=== PATIENT | female | born 1955 | race Caucasian/White ===

== ENCOUNTER 2020-08-20 06:53 | Outpatient (NON) | payer OTHER, SELFPAY ==
[2020-08-21 13:43] LABS: SARS-CoV-2 RNA PCR Positive
== END 2020-08-20 06:54 ==
PROVIDERS: PCP Family Medicine Adolescent Medicine; Visit Provider Family Medicine Adolescent Medicine
DX: U07.1 COVID-19 (principal)
CPT/HCPCS: 87635; C9803; U0003

== ENCOUNTER 2023-10-04 15:01 | Outpatient (CLI) | payer MEDICARE, OTHER, SELFPAY ==
--- NOTE | ~2023-10-04 | XR_ITS ---
EXAMINATION: XR chest 2V DATE: 10/04/2023 15:16 INDICATION: Pericarditis presenting with dyspnea and one week of chest pain TECHNIQUE: PA and lateral views of the chest were obtained. COMPARISON: Chest radiograph dated 07/30/2019 FINDINGS: The lungs remain clear with no focal airspace opacities, pulmonary edema, pleural effusion or pneumot horax. The cardiomediastinal silhouette is normal. Mild to moderate thoracic spondylosis. Plain screw fixation along the proximal right humerus. IMPRESSION: 1. No radiographic acute cardiopulmonary disease. Reviewed, dictated and finalized at location A. RICT REPRESENTATIVE
== END 2023-10-04 15:02 | disposition home or self-care (01) ==
PROVIDERS: PCP Family Medicine Adolescent Medicine; Visit Provider Family Medicine Adolescent Medicine
DX: I31.9 Disease of pericardium, unspecified (principal)
CPT/HCPCS: 71046

== ENCOUNTER 2024-06-05 20:20 | Observation (INO) | payer MEDICARE, OTHER, SELFPAY ==
--- NOTE | ~2024-06-05 | CT_ITS ---
Clinical Indication: Pulmonary embolus, chest pain CT Scan of the Chest with Contrast: Technique: Contiguous sections were acquired throughout the chest after intravenous administration of 100 cc of Omnipaque 350. Dose reduction technique was used on this scan by utilizing automated expos ure control and iterative reconstruction technique. The dose-length product (DLP) was 372.09 mGy-cm. Findings: There is no evidence of any significant mediastinal, hilar or axillary lymphadenopathy. There is no f illing defect in the pulmonary arterial tree to suggest pulmonary embolus. There is no evidence of ao rtic dissection or aneurysm. There is no evidence of pleural or pericardial effusion. The lungs are clear. No pulmonary nodules or infiltrates are noted. Images through the upper abdomen reveal no abnormalities. Impression: No evidence of pulmonary embolus, aortic dissection, or aortic aneurysm. Clear lungs. Reviewed, dictated and finalized at [facility]. Impression: No evidence of pulmonary embolus, aortic dissection, or aortic aneurysm. Clear lungs.
--- NOTE | ~2024-06-05 | XR_ITS ---
XR chest 2V Ordering provider: Yuriy Gregorio MD History: 68 years Female with . chest pain . Comparison: October 04, 2023 FINDINGS: MEDIASTINUM: The cardiac silhouette is not enlarged. LUNGS: No infiltrates, effusions or pneumothorax. OTHER: No free air under the diaphragm. Degenerative changes of the spine. Postoperative changes in t he right humerus. IMPRESSION: No acute cardiopulmonary pathology. Reviewed, dictated and finalized at location A.
--- NOTE | 2024-06-05 20:23 | ECG_ITS ---
Test Date: 2024-06-05 20:29:47 Measurements Intervals [place] Rate: 80 P: 54 AL: 138 QRS: 21 QRSD: 94 T: 18 QT: 403 QTc: 466 Interpretive Statements SINUS RHYTHM BORDERLINE ST-T WAVE ABNORMALITY- ANTEROLAT/INF LEADS BASELINE ARTIFACT- I, II, III, AVR, AVL, AVF, V1-V6 BORDERLINE ECG No previous ECG available for comparison Electronically Signed On 06-06-2024 06:39:27 CDT by Andrea Marks D.O.
[2024-06-05 20:51] LABS: Basophils Absolute Auto 0.1 K/mm3 (0.0-0.1); Basophils Percent Auto 0.9 % (0.2-1.2); Eosinophils Absolute Auto 0.4 K/mm3 (0-0.3); Eosinophils Percent Auto 5.4 % (0-4.4); Hematocrit 42.6 % (37.0-47.0); Hemoglobin 14.1 g/dL (12.0-15.0); Immature Granulocyte Absolute 0.03 K/mm3 (0.00-0.031); Immature Granulocyte Percent A 0.4 % (0-0.5); Lymphocytes Absolute Auto 2.85 K/mm3 (0.9-3.2); Lymphocytes Percent Auto 36.3 % (18.3-44.2); Mean Corpuscular HGB Conc 33.1 g/dl (32-36); Mean Corpuscular Hemoglobin 30.5 pg (26-34); Mean Corpuscular Volume 92.2 fl (80-100); Mean Platelet Volume 9.6 fl (7.4-10.4); Monocytes Absolute Auto 0.7 K/mm3 (0.1-0.6); Monocytes Percent Auto 9.3 % (2.6-8.5); Neutrophils Absolute Auto 3.8 K/mm3 (1.3-6.7); Neutrophils Percent Auto 47.7 % (45.5-73.1); Platelet Count Result 299 k/mm3 (150-375); Red Blood Count 4.62 M/mm3 (4.2-5.4); Red Cell Distribution Width 12.3 % (11.5-14.5); White Blood Count 7.9 K/mm3 (4.5-10.0)
[2024-06-05 20:54] VITALS: BP 145/61; PULSE 76; RESP 22; TEMP 36.8; O2SAT 99
[2024-06-05 21:02] LABS: Partial Thromboplastin Time 25.6 Seconds (22.3-36.8); Prothrombin Time 13.3 Seconds (11.1-14.7)
[2024-06-05 21:03] LABS: Alanine Aminotransferase 21 U/L (6-35); Albumin Level 4.6 g/dL (3.5-5.1); Alkaline Phosphatase 60 U/L (38-126); Anion Gap 14 mmol/L (4-12); Aspartate Amino Transferase 26 U/L (14-36); Bilirubin,Total 1.3 mg/dL (0.2-1.3); Blood Urea Nitrogen 18 mg/dL (7-17); Calcium 9.1 mg/dL (8.4-10.2); Carbon Dioxide 21 mmol/L (22-30); Chloride 105 mmol/L (98-107); Estimated CRCL calculation 54 ml/min; Estimated Glomerular Filt Rate > 60; Glucose 133 mg/dL (65-110); Lipase 120 U/L (23-300); Potassium 3.9 mmol/L (3.4-5.0); Sodium 140 mmol/L (137-145)
[2024-06-05 21:13] LABS: Troponin I < 0.012 ng/mL (0.000-0.034)
[2024-06-05 21:46] LABS: Influenza A QL RT-PCR Negative (Negative); Influenza B QL RT-PCR Negative (Negative); RSV RNA, RT-PCR Negative (Negative); SARS-CoV-2 RNA PCR Negative (Negative)
[2024-06-06] VITALS (49 sets, daily range): BP systolic 118–149; BP diastolic 58–97; PULSE 62–94; RESP 11–24; TEMP 36.3–36.8; O2SAT 93–100; BMI 26.1; BMI 27.5
--- NOTE | 2024-06-06 04:49 | ECG_ITS ---
Test Date: 2024-06-06 04:55:02 Measurements Intervals [place] Rate: 72 P: 60 MI: 140 QRS: 39 QRSD: 89 T: 40 QT: 419 QTc: 461 Interpretive Statements SINUS RHYTHM NONSPECIFIC ST-T WAVE ABNORMALITY- ANTEROLAT/INF LEADS BASELINE ARTIFACT- I, II, III, AVR, AVL, AVF BORDERLINE ECG Compared to ECG 06/05/2024 20:29:47 NO SIGNIFICANT CHANGE Electronically Signed On 06-06-2024 06:51:00 CDT by Andrea Marks D.O.
[2024-06-06] MEDS: MORPHINE SULFATE (*CRX) 4 MG/ML INJ IV PUSH (05:09)
[2024-06-06] MEDS: ASPIRIN 81 MG CHEWABLE TABLET 324 MG PO (05:09)
[2024-06-06] MEDS: NITROGLYCERIN SL 0.4 MG TABLET SUBLINGUAL (05:10)
--- NOTE | 2024-06-06 05:33 | ED.GENADULT ---
HPI - General Adult General Chief complaint: Chest Pain Stated complaint: cp Time Seen by Provider: 06/06/24 04:40 History of Present Illness HPI narrative: patient is a 68-year-old female who presents emergency department with chief complaint of chest pain and shortness of breath. Patient reports that she does have remote history of asthma but has not had an attack for years the patient states she feels as though she can not get her air in her chest the patient reports she was diagnosed with pericarditis previously and this feels worse than that episode. Patient reports that she has had a little bit of swelling in her legs patient reports that she has no prior cardiac disease Related Data Home Medications Medication Instructions Recorded Confirmed albuterol sulfate 90 mcg/actuation 2 puff inhalation Q4H PRN 12/05/21 05/10/23 aerosol inhaler (ProAir HFA) Allergies Allergy/AdvReac Type Severity Reaction Status Date / Time cephalexin Allergy Mild unknown Verified 10/04/23 13:41 Penicillins Allergy Mild unknown Verified 10/04/23 13:41 sulfamethoxazole Allergy Mild unknown Verified 10/04/23 13:41 [From Septra] trimethoprim [From Septra] Allergy Mild unknown Verified 10/04/23 13:41 cefaclor [From Ceclor] AdvReac Intermediate swollan Verified 10/04/23 13:41 tongue baclofen AdvReac Mild Rash Verified 10/04/23 13:41 Review of Systems Review of Systems: A 10 system review of systems was completed on the patient and is negative except for what is stated in the HPI. Nursing and ancillary documentation was reviewed. PMFSH Past Medical History Medical History Pure hypercholesterolemia, unspecified Surgical History Surgical History H/O shoulder surgery H/O: hysterectomy History of cholecystectomy Family History Family History Father Heart disease Mother Hypertension Social History Social History Smoking status: Never smoker Second hand tobacco smoke exposure: No Alcohol intake: never Substance use: never Substance use type: does not use Lack of Transportation: No Lack of Food: Never True Current Housing: I Have Housing Concerned About Future Housing: No Difficulty Paying Gas/Electric Bills: No Difficulty Paying for Meds: No Currently Unemployed: No Education: High School Diploma/GED Difficulty w/ Childcare or Family Care: No Living arrangements: with family Occupation/Education: retired Gender identity (if verbalized by the patient): Female Sexual Orientation (if Verbalized by the Patient): Straight or Heterosexual Spiritual care concerns: No Agree to blood products: Yes Exam Narrative: GENERAL: Well-appearing, well-nourished, and in no acute distress. HEAD: Normocephalic, atraumatic. EYES: PERRLA and EOMI. ENT: Nares clear, no rhinorrhea or epistaxis. Mucous membranes moist. NECK: Supple. CHEST: Clear to auscultation. No respiratory distress. chest wall is tender to palpation in the left sternal border HEART: Regular rate and rhythm. No murmur heard. Normal peripheral pulses. ABDOMEN: Soft, nontender, nondistended, normal active bowel sounds. EXTREMITIES: Normal range of motion. No edema. SKIN: Warm, dry, no rash. NEURO: No focal deficits. Alert and oriented x3. PSYCH: Normal mood and affect. Course Vital Signs Vital signs: Vital Signs Temperature 36.8 C 06/05/24 20:54 Pulse Rate 76 06/05/24 20:54 Respiratory Rate 22 H 06/05/24 20:54 Blood Pressure 145/61 H 06/05/24 20:54 Pulse Oximetry 99 06/05/24 20:54 Oxygen Delivery Room Air 06/05/24 20:54 Temperature 36.8 C 06/05/24 20:54 Pulse Rate 66 06/06/24 06:03 Respiratory Rate 22 H 06/05/24 20:54 Blood Pressu
[2024-06-06 05:35] LABS: NT Pro B Type Natriuretic Pept 99 pg/mL (19.9-100)
[2024-06-06 05:41] LABS: Troponin I 0.015 ng/mL (0.000-0.034)
--- NOTE | 2024-06-06 13:11 | PM.IMHP ---
H&P: HPI History of Present Illness Date/Time: 06/06/24 13:11 Chief Complaint: chest pain Narrative: 68 y.o female with pmh of htn reports chest pain that lasted all night. She had covid in 2019 and was never the same after . She was seen per her Pcp in november with c/o chest pain- intermitten- and diagnosed with pericarditis based on physical exam- Not pleuritic and not affected by motion, though is worse if she lies on her left side n echo was done as far as she remembers. She was prescribed diclofenac 75 mg bid x 30 days but quit taking it after few doses as she didnot like how it made her feel. She did not let her pcp know. She reports she continued to have chest pain on and off until yesterday it lasted all night that prompted her to come to ED. She describes her pain as constant, dull and she felt like she could not catch her breath- but it didn't feel like asthma attack at all. She denies smoking, drinking alcohol or any drug use. h/o: asthma but has albuterol prn and she has not been needing it lately at all. EKG - no acute issues WBC-normal, afebrile. trop negative Review of Systems Review of Systems: All systems reviewed & are unremarkable except as noted in HPI and below (h/p) PMFSH Past Medical History Medical History Pure hypercholesterolemia, unspecified Surgical History Surgical History H/O shoulder surgery H/O: hysterectomy History of cholecystectomy Family History Family History Father Heart disease Mother Hypertension Social History Social History Smoking status: Never smoker Second hand tobacco smoke exposure: No Alcohol intake: never Substance use: never Substance use type: does not use Lack of Transportation: No Lack of Food: Never True Current Housing: I Have Housing Concerned About Future Housing: No Difficulty Paying Gas/Electric Bills: No Difficulty Paying for Meds: No Currently Unemployed: No Education: High School Diploma/GED Difficulty w/ Childcare or Family Care: No Living arrangements: with family Occupation/Education: retired Gender identity (if verbalized by the patient): Female Sexual Orientation (if Verbalized by the Patient): Straight or Heterosexual Spiritual care concerns: No Agree to blood products: Yes Meds Home Medications and Allergies Home Medications Medication Instructions Recorded Confirmed Type carvedilol 12.5 mg tablet See Rx Instructions .Route 02/12/24 Rx .COMPLEX #60 tabs furosemide 20 mg tablet 20 mg PO QAM PRN edema #30 tabs 03/19/24 Rx Allergies Allergy/AdvReac Type Severity Reaction Status Date / Time cephalexin Allergy Mild unknown Verified 10/04/23 13:41 Penicillins Allergy Mild unknown Verified 10/04/23 13:41 sulfamethoxazole Allergy Mild unknown Verified 10/04/23 13:41 [From Septra] trimethoprim [From Septra] Allergy Mild unknown Verified 10/04/23 13:41 cefaclor [From [facility]] AdvReac Intermediate swollan Verified 10/04/23 13:41 tongue baclofen AdvReac Mild Rash Verified 10/04/23 13:41 Vital Signs Vital Signs - 24 hr 06/05/24 20:54 06/06/24 06:03 06/06/24 07:29 Temperature 98.2 F Pulse Rate 76 66 67 Respiratory Rate 22 H 16 Blood Pressure 145/61 H 126/68 Pulse Oximetry 99 99 Oxygen Delivery Room Air 06/06/24 05:12 06/06/24 05:13 06/06/24 05:15 Temperature Pulse Rate 74 94 75 Respiratory Rate 12 13 12 Blood Pressure 145/68 H Pulse Oximetry 98 99 95 Oxygen Delivery 06/06/24 05:16 06/06/24 05:30 06/06/24 05:31 Temperature Pulse Rate 94 88 93 Respiratory Rate 17 18 15 Blood Pressure 138/74 125/71 Pulse Oximetry 98 93 95 Oxygen Delivery 06/06/24 06:40 06/06/24 06:45 06/06/24 06:46 [place]
--- NOTE | 2024-06-06 18:36 | ADMGEN ---
This patient, Kiki Fritz, was admitted to IMU Room 203-01. Patient/family oriented to hospital policies and general routines including ID bracelet, bed and alarms, visiting hours, pain management, procedures, bathroom and other care routines, personal items, smoking policy, room service/diet, and visiting hours. Information on how to activate the Rapid Response Team has been discussed. Patient/Family are encouraged to report perceived risks to care and to ask questions if they do not understand what they are told or what they should do.
[2024-06-06] MEDS: ACETAMINOPHEN 325 MG TABLET 650 MG PO (20:38)
[2024-06-07] VITALS (9 sets, daily range): BP systolic 132–151; BP diastolic 59–68; PULSE 64–99; RESP 16–18; TEMP 36.1–37; O2SAT 98–99
--- NOTE | 2024-06-07 06:00 | ECHO_ITS ---
Patient Info Name: Kiki Fritz Age: 68 years : 1955 Gender: Female Ht: 65 in Wt: 165 lbs BSA: 1.87 m2 HR: 89 bpm BP: 150 / 67 mmHg Heart Rhythm: Sinus Rhythm Technical Quality: Good Exam Date: 06/07/2024 7:08 AM Exam Location: Echo Lab Patient Status: Outpatient Admit Date: 06/06/2024 Staff Ordering Physician: Yuriy Gregorio MD Chief Of Planning: Robinson Wiley RDCS Attending Provider: Kay Cowart MD Referring Physician: Jg VERGARA; Exam Type: CA echo doppler color flow Study Info Indications - chest pain Complete two-dimensional, color flow and Doppler transthoracic echocardiogram is performed. Summary 1. Left ventricular chamber dimension is normal. 2. Left ventricular systolic function is normal, estimated at 65-70%. 3. There is mildly increased left ventricular wall thickness. 4. The left ventricular diastolic function is grade I diastolic dysfunction. 5. Right ventricular systolic function is normal. 6. There is small anterior pericardial effusion. 7. No significant valvular disease. Left Ventricle Left ventricular chamber dimension is normal. Left ventricular systolic function is normal, estimated at 65-70%. There is mildly increased left ventricular wall thickness. The left ventricular diastolic function is grade I diastolic dysfunction. Right Ventricle Right ventricular chamber dimension is normal. Right ventricular systolic function is normal. Left Atria Left atrial chamber dimension is normal. Right Atria Right atrial chamber dimension is normal. Atrial Septum Intact interatrial septum visualized by color flow imaging. Aortic Valve The aortic valve is not well visualized. There is no aortic valve stenosis. There is no aortic valve regurgitation. Pulmonic Valve The pulmonic valve is not well visualized. Mitral Valve There is trace mitral valve regurgitation. The mitral valve annulus is mildly calcified. Tricuspid Valve There is trace tricuspid valve regurgitation. Pericardium/Pleural There is small anterior pericardial effusion. Inferior Vena Cava Normal inferior vena cava with >50% collapse upon inspiration consistent with normal right atrial pressure, 3 mmHg. Aorta The aortic root size at the sinus of Valsalva is normal. Left Ventricular Outflow Tract Name Value Normal LVOT 2D LVOT Diameter 1.9 cm LVOT Doppler LVOT Peak Gradient 3 mmHg LVOT Mean Gradient 2 mmHg LVOT VTI 27 cm LVOT VTI/AV VTI Ratio 0.9 LVOT Stroke Volume 79 ml LVOT CO 5.8 l/min LVOT CI 3.1 l/min/m2 Pulmonic Valve Name Value Normal PV Doppler PV Peak Gradient 3 mmHg Mitral Valve Name
--- NOTE | 2024-06-07 09:41 | PM.IMPN ---
Progress Note: A&P Assessment and Plan (1) Chest pain: Code(s): R07.9 - Chest pain, unspecified Status: Acute Assessment and Plan: - so far trop neg. 9will ordr 3rd one), ekg unremarkable - echo is ordered, stress test- unable to do yesterday as was not NPO - will consult card - tele monitor = nitro prn (2) Pericarditis: Code(s): I31.9 - Disease of pericardium, unspecified Status: Acute Assessment and Plan: - card consult ordered -echo-completed (3) Essential (primary) hypertension: Code(s): I10 - Essential (primary) hypertension Status: Acute Assessment and Plan: will continue home coreg once med list is reviewed and updated Plan dvt prophylaxis: Lovenox Time Spent With Patient Time with patient: Greater than 35 minutes Subjective Date/time seen: 06/07/24 09:41 Interval history: Narrative: 68 y.o female with pmh of htn reports chest pain that lasted all night. She had covid in 2019 and was never the same after . She was seen per her Pcp in november with c/o chest pain- intermittent- and diagnosed with pericarditis based on physical exam- Not pleuritic and not affected by motion, though is worse if she lies on her left side n echo was done as far as she remembers. She was prescribed diclofenac 75 mg bid x 30 days but quit taking it after few doses as she didnot like how it made her feel. She did not let her pcp know. She reports she continued to have chest pain on and off until yesterday it lasted all night that prompted her to come to ED. She describes her pain as constant, dull and she felt like she could not catch her breath- but it didn't feel like asthma attack at all. She denies smoking, drinking alcohol or any drug use. h/o: asthma but has albuterol prn and she has not been needing it lately at all. EKG - no acute issues WBC-normal, afebrile. trop negative 06/07- card consult ordered. Unable to do stress test yesterday - needs to be NPO (no stress test available during the weakened. Review of Systems Review of Systems: All systems reviewed & are unremarkable except as noted in HPI and below Constitutional: Constitutional: Denies chills Cardiovascular: Cardiovascular: Denies diaphoresis Respiratory: Respiratory: Denies chest congestion and Denies cough Musculoskeletal: Musculoskeletal: Denies back pain Psychiatric: Psychiatric: Denies anxiety Exam Const: General: comfortable Resp: Effort & Inspection: normal respiratory effort Auscultation: clear to auscultation bilaterally Cardio: Rate: regular rate Rhythm: regular rhythm Skin: General skin exam: normal color Neuro: Sensory Exam: normal sensation Extrem: General: normal to inspection Psych: Mental Status: mental status grossly normal Affect: normal affect Objective Data Vital Signs Vital Signs: Vital Signs - 24 hr 06/06/24 10:02 06/06/24 10:03 06/06/24 10:28 Temperature Pulse Rate 71 77 69 Respiratory Rate 13 20 18 Blood Pressure 121/79 Pulse Oximetry 93 96 95 Oxygen Delivery 06/06/24 10:30 06/06/24 10:31 06/06/24 10:48 Temperature Pulse Rate 67 69 66 Respiratory Rate 18 17 14 Blood Pressure 128/76 Pulse Oximetry 96 98 Oxygen Delivery 06/06/24 11:00 06/06/24 11:01 06/06/24 11:16 Temperature Pulse Rate 62 63 64 Respiratory Rate 16 17 18 Blood Pressure 122/58 L 129/59 L Pulse Oximetry 95 97 97 Oxygen Delivery 06/06/24 11:31 06/06/24 11:32 06/06/24 11:45 Temperature Pulse Rate 63 63 73 Respiratory Rate 16 17 14 Blood Pressure 128/76 Pulse Oximetry 98 96 99 Oxygen Delivery 06/06/24 11:46 06/06/24 12:00 06/06/24 12:01 Temperature Pulse Rate 64 66 63 Respiratory Rate 11 L 19 11 L Blood Pressure 129/65 127/71 Pulse Oximetry 99 97 98 Oxygen Delivery 06/06/24 12:29 06/06/24 12:30 06/06/24 12:31 Temperature Pulse Rate 76 70 73 Respiratory Rate 14 14 12 Blood Pressure 137/59 L Pulse O
[2024-06-07 10:47] LABS: Hematocrit 43.8 % (37.0-47.0); Hemoglobin 14.5 g/dL (12.0-15.0); Mean Corpuscular HGB Conc 33.1 g/dl (32-36); Mean Corpuscular Hemoglobin 30.7 pg (26-34); Mean Corpuscular Volume 92.8 fl (80-100); Mean Platelet Volume 9.5 fl (7.4-10.4); Platelet Count Result 282 k/mm3 (150-375); Red Blood Count 4.72 M/mm3 (4.2-5.4); Red Cell Distribution Width 12.2 % (11.5-14.5); White Blood Count 6.1 K/mm3 (4.5-10.0)
[2024-06-07] MEDS: ASPIRIN 81 MG CHEWABLE TABLET PO (10:51)
[2024-06-07 11:01] LABS: Anion Gap 12 mmol/L (4-12); Blood Urea Nitrogen 11 mg/dL (7-17); Calcium 8.9 mg/dL (8.4-10.2); Carbon Dioxide 25 mmol/L (22-30); Chloride 102 mmol/L (98-107); Estimated CRCL calculation 60 ml/min; Estimated Glomerular Filt Rate > 60; Glucose 173 mg/dL (65-110); Sodium 139 mmol/L (137-145)
--- NOTE | 2024-06-07 11:13 | PM.CNCAR ---
Assessment and Plan Assessment and plan (1) Chest pain: Code(s): R07.9 - Chest pain, unspecified Status: Acute Assessment and Plan: Clearly reproducible chest wall tenderness in left chest area, left shoulder. This elicits the same type of pain patient has been feeling. This is consistent with a musculoskeletal etiology. It improves with Tylenol. Recommend taking scheduled Tylenol 650mg TID for 1-2 weeks for pain control. She does not need inpatient stress testing in my opinion. (2) Pericarditis: Code(s): I31.9 - Disease of pericardium, unspecified Status: Acute Assessment and Plan: Questionable history of pericarditis in September. Echocardiogram this admission does show a very small anterior pericardial effusion, but patient's symptoms are not consistent with pericarditis. Will check ESR and CRP to rule out pericarditis. If ESR and CRP negative, then no additional workup needed. (3) Essential (primary) hypertension: Code(s): I10 - Essential (primary) hypertension Status: Acute Assessment and Plan: Stable. Continue Coreg. Plan Recommendations and plan discussed with Hospitalist. From my standpoint, she could be discharged home. Will arrange outpatient follow up in my clinic. History of Present Illness History of Present Illness Consult date/time: 06/07/24 11:13 Requesting physician: Ness Figueroa APRN Consult reason: chest pain Reason For Visit: Chest Pain Narrative: We are consulted for chest pain. This is a 68 year old female with hypertension, possible history of pericarditis (treated by PCP in September 2023, had COVID the month before). Patient presented with left sided chest pain, with radiation to shoulder and back that began on Sunday. ER workup showed EKGs with sinus rhythm, nonspecific STTW abnormality. Troponins are negative x 2. Echocardiogram shows normal LVEF with no appreciable wall motion abnormalities, small anterior pericardial effusion. Her pain improved last night with Tylenol and she is feeling much better today. Review of Systems Review of Systems: All systems reviewed & are unremarkable except as noted in HPI and below (HPI) [facility] Past Medical History Medical History Pure hypercholesterolemia, unspecified Surgical History Surgical History H/O shoulder surgery H/O: hysterectomy History of cholecystectomy Family History Family History Father Heart disease Mother Hypertension Social History Social History Smoking status: Never smoker Second hand tobacco smoke exposure: No Alcohol intake: never Substance use: never Substance use type: does not use Do You Feel Safe in your Home?: Yes Lack of Transportation: No Lack of Food: Never True Current Housing: I Have Housing Concerned About Future Housing: No Difficulty Paying Gas/Electric Bills: No Difficulty Paying for Meds: No Currently Unemployed: No Education: High School Diploma/GED Difficulty w/ Childcare or Family Care: No Living arrangements: with family Occupation/Education: retired Gender identity (if verbalized by the patient): Female Sexual Orientation (if Verbalized by the Patient): Straight or Heterosexual Spiritual care concerns: No Agree to blood products: Yes Meds Home Medications and Allergies Home Medications Medication Instructions Recorded Confirmed Type furosemide 20 mg tablet 20 mg PO QAM PRN edema #30 tabs 03/19/24 06/06/24 Rx carvedilol 12.5 mg tablet 12.5 mg PO BID 06/07/24 06/07/24 History Allergies Allergy/AdvReac Type Severity Reaction Status Date / Time cephalexin Allergy Mild unknown Verified 10/04/23 13:41 Penicillins Allergy Mild unknown Verified 10/04/23 13:41 sulfamethoxazole Allergy Mild un
[2024-06-07 11:45] LABS: CRP 0.6 mg/dL (<1.0)
[2024-06-07 12:55] LABS: Troponin I < 0.012 ng/mL (0.000-0.034)
[2024-06-07 13:13] LABS: Erythrocyte Sedimentation Rate 10 mm/hr (0-20)
[2024-06-07] MEDS: ACETAMINOPHEN 325 MG TABLET 650 MG PO (13:13)
--- NOTE | 2024-06-07 13:35 | PM.DS ---
DS: Admitting Diagnosis Discharge Date 06/07 Admitting Diagnosis chest pain DS: Discharge Diagnosis Discharge Diagnosis (1) Chest pain: Code(s): R07.9 - Chest pain, unspecified Status: Acute Assessment and Plan: - so far trop neg. 9will ordr 3rd one), ekg unremarkable - echo is ordered, stress test- unable to do yesterday as was not NPO - will consult card - tele monitor = nitro prn (2) Pericarditis: Code(s): I31.9 - Disease of pericardium, unspecified Status: Acute Assessment and Plan: - card consult ordered -echo-completed (3) Essential (primary) hypertension: Code(s): I10 - Essential (primary) hypertension Status: Acute Assessment and Plan: will continue home coreg once med list is reviewed and updated Plan dvt prophylaxis: Lovenox DS: Summary Hospital Course Hospital Course: Narrative: 68 y.o female with pmh of htn reports chest pain that lasted all night. She had covid in 2019 and was never the same after . She was seen per her Pcp in november with c/o chest pain- intermittent- and diagnosed with pericarditis based on physical exam- Not pleuritic and not affected by motion, though is worse if she lies on her left side n echo was done as far as she remembers. She was prescribed diclofenac 75 mg bid x 30 days but quit taking it after few doses as she didnot like how it made her feel. She did not let her pcp know. She reports she continued to have chest pain on and off until yesterday it lasted all night that prompted her to come to ED. She describes her pain as constant, dull and she felt like she could not catch her breath- but it didn't feel like asthma attack at all. She denies smoking, drinking alcohol or any drug use. h/o: asthma but has albuterol prn and she has not been needing it lately at all. EKG - no acute issues WBC-normal, afebrile. trop negative 06/07- card consult ordered. Unable to do stress test yesterday - needs to be NPO (no stress test available during the weakened. exam is not consistent with pericarditic, as reproducible chest wall tenderness- more musculoskeletal in nature. cardiology saw her- ok to discharge with a f/u at [facility] office. Pt is aware- agreeable. Status at Discharge Functional status at discharge: independent ambulation Overall status at discharge: patient is back to baseline Time Spent with Patient Time attestation: Total time spent providing and/or coordinating discharge services: Time spent: Greater than 30 minutes Exam Narrative: exam is not consistent with pericarditic, as reproducible chest wall tenderness- more musculoskeletal in nature Const: General: comfortable Resp: Effort & Inspection: normal respiratory effort Auscultation: clear to auscultation bilaterally Cardio: Rate: regular rate Rhythm: regular rhythm Skin: General skin exam: normal color Neuro: Sensory Exam: normal sensation Extrem: General: normal to inspection Psych: Mental Status: mental status grossly normal Affect: normal affect DS: Data Data Completed and Pending Completed studies during hospitalization: echo Labs on day of discharge: Labs from last 24 hours 06/07/24 10:41 WBC 6.1 RBC 4.72 Hgb 14.5 Hct 43.8 MCV 92.8 MCH 30.7 MCHC 33.1 RDW 12.2 Plt Count 282 MPV 9.5 ESR 10 Sodium 139 Potassium 4.0 Chloride 102 Carbon Dioxide 25 Anion Gap 12 BUN 11 D Creatinine 0.70 Estim Creat Clear Calc 60 Estimated GFR > 60 Glucose 173 H Calcium 8.9 Troponin I < 0.012 C-Reactive Protein 0.6 Discharge Plan Discharge Consulting providers: Meir Leblanc Discharging Clinician: Ness Figueroa Patient Disposition: Home, Self-Care Activity: may shower Diet: heart healthy Discharge Instructions: please take NSAID or tylenol for pain and f/u with cardiology. If pain returns and/or symptoms become worse- please return to ER Patient Instructions: Antibiotic Form, Radha
== END 2024-06-07 16:10 | disposition home or self-care (01) ==
LOC: ANHED 06-06 06:30 → ANHIMU 06-06 07:28
PROVIDERS: Internal Medicine; Nurse Practitioner; Admitting Provider Internal Medicine; Emergency Provider Emergency Medicine; PCP Family Medicine Adolescent Medicine; Visit Provider Internal Medicine
DX: R07.9 Chest pain, unspecified (principal); I31.9 Disease of pericardium, unspecified; I10 Essential (primary) hypertension; E78.00 Pure hypercholesterolemia, unspecified; Z79.51 Long term (current) use of inhaled steroids; Z20.822 Contact with and (suspected) exposure to COVID-19
CPT/HCPCS: 36415; 71046; 71275; 80048; 80053; 83690; 83880; 84484; 85025; 85027; 85610; 85652; 85730; 86140; 87637; 93005; 93306; 96374; 99285; A9270; G0378; J2270; Q9967